=== PATIENT | male | born 1975 | race Caucasian/White ===

== ENCOUNTER 2016-08-16 17:59 | Emergency (ER) | payer BC | END 2016-08-16 19:00 | disposition home or self-care (01) | LOC: CED 17:59 | DX: S81.831A Puncture wound without foreign body, right lower leg, initial encounter (principal); W45.8XXA Other foreign body or object entering through skin, initial encounter; Y92.830 Public park as the place of occurrence of the external cause | CPT/HCPCS: 90471; 90715; 99283 ==